=== PATIENT | male | born 2000 | race Caucasian/White ===

== ENCOUNTER 2019-08-03 21:45 | Emergency (ER) | payer BC ==
[~2019-08-03] VITALS: Ht 188 cm; Wt 81.8 kg
[2019-08-03] MEDS ORDERED: IBUPROFEN 600 MG TAB PO ONE (23:30)
[2019-08-03 23:41] VITALS: BP 140/73
--- NOTE | 2019-08-04 09:13 | REP ---
Right wrist: Four views. History: Injury in a fall. Findings: Four views right wrist demonstrate a transversely oriented fracture through the distal radial metaphysis nondisplaced. There is slight buckling of the distal metaphyseal cortex on lateral radiograph. Associated swelling is seen. No ulnar injury is appreciated. No metacarpal fracture is seen. Impression: Nondisplaced transverse fracture distal radial metaphysis. Electronically Signed by Aramis Jimenez MD 08/04/2019 09:05 A
--- NOTE | 2019-08-04 09:14 | REP ---
Right forearm: Two views. History: Injury in a fall. Findings: AP and lateral views of the right forearm demonstrate a distal radial metaphyseal fracture nondisplaced. No ulnar fracture is seen. No proximal forearm fracture is appreciated. No elbow joint effusion is appreciated. Impression: Distal radial metaphyseal fracture. Nondisplaced. Electronically Signed by Aramis Jimenez MD 08/04/2019 09:06 A
== END 2019-08-03 23:47 | disposition home or self-care (01) ==
LOC: M ED 21:45
DX: S59.201A Unspecified physeal fracture of lower end of radius, right arm, initial encounter for closed fracture (principal); Y93.66 Activity, soccer; Y99.8 Other external cause status; Y92.219 Unspecified school as the place of occurrence of the external cause; W19.XXXA Unspecified fall, initial encounter